=== PATIENT | female | born 1940 | race Hispanic/Latino ===

== ENCOUNTER 2017-05-31 08:07 | Day surgery (SDC) | payer MEDICARE, OTHER ==
[2017-05-25 14:33] LABS: Basophils % (Auto) 0.7 % (0.0-1.8); Eosinophils % (Auto) 0.7 % (0.0-4.3); Hematocrit 37.2 % (30.3-42.9); Hemoglobin 12.3 gm/dl (10.1-14.3); Mean Corpuscular HGB Conc 33 % (30-34); Mean Corpuscular Hemoglobin 28 pg (28-32); Mean Corpuscular Volume 86 fl (79-97); Platelet Count 265 K/mm3 (140-440); Red Blood Count 4.32 M/mm3 (3.65-5.03); White Blood Count 7.9 K/mm3 (4.5-11.0)
[2017-05-25 14:44] LABS: INR 0.87 (0.87-1.13); Partial Thromboplastin Time 30.3 Sec. (24.2-36.6)
[2017-05-25 15:03] LABS: Alanine Aminotransferase 17 units/L (7-56); Albumin 4.7 g/dL (3.9-5); Albumin/Globulin Ratio 1.3 %; Alkaline Phosphatase 91 units/L (35-129); Anion Gap 18 mmol/L; BUN/Creatinine Ratio 25; Blood Urea Nitrogen 20 mg/dL (7-17); Calcium 9.6 mg/dL (8.4-10.2); Carbon Dioxide 26 mmol/L (22-30); Chloride 98.1 mmol/L (98-107); Glucose 96 mg/dL (65-100); Potassium 5.3 mmol/L (3.6-5.0); Sodium 137 mmol/L (137-145); Total Protein 8.2 g/dL (6.3-8.2)
[~2017-05-31 08:07] MED LIST: ADRENALIN ONE; MARCAINE 0.25% INFILTRATI ONE
--- NOTE | 2017-05-31 09:37 | Anesthesia Consultation ---
Anesthesia Consult and Med Hx Date of service: 05/31/17 - Airway Anesthetic Teeth Evaluation: Dentures ROM Head & Neck: Adequate Mental/Hyoid Distance: Adequate Mallampati Class: Class II Intubation Access Assessment: Probably Good - Pulmonary Exam CTA: Yes - Cardiac Exam Cardiac Exam: RRR - Pre-Operative Health Status ASA Pre-Surgery Classification: ASA3 Proposed Anesthetic Plan: General Nerve Block: IS - Pulmonary Hx Smoking: Yes (STOPPED X 40 YRS) SOB: Yes (SOB WITH ACTIVITY) Hx Sleep Apnea: No (ANAMIKA PRE SCREEN LOW RISK) - Cardiovascular System Hx Hypertension: Yes (X 15 YRS) Hx Coronary Artery Disease: Yes Hx Heart Attack/AMI: Yes - Other Systems Hx Cancer: No
--- NOTE | 2017-05-31 09:37 | Anesthesia Day of Surgery ---
Anesthesia Day of Surgery - Day of Surgery Patient Examined: Yes Patient H&P Reviewed: Yes Patient is NPO: Yes Beta Blockers: Yes
[2017-05-31] MEDS ORDERED: LACTATED RINGERS 1,000 ML IV SCH (10:00)
[2017-05-31] MEDS ORDERED: VERSED IV NR (10:00)
[2017-05-31] MEDS ORDERED: ANCEF/STERILE WATER 2 GM/20 ML IV NR (10:00)
[2017-05-31] MEDS ORDERED: MARCAINE 0.25% INFILTRATI ONE ×2 (11:07→14:11)
[2017-05-31] MEDS ORDERED: ZOFRAN ONE ×2 (12:24→15:12)
[2017-05-31] MEDS ORDERED: DIPRIVAN 10 MG/ML IV ONE (12:24)
[2017-05-31] MEDS ORDERED: ZEMURON IV ONE (12:24)
[2017-05-31] MEDS ORDERED: SUBLIMAZE ONE (12:24)
[2017-05-31] MEDS ORDERED: XYLOCAINE MPF 2% ONE (12:24)
[2017-05-31] MEDS ORDERED: DECADRON ONE (12:24)
[2017-05-31] MEDS ORDERED: NEOSTIGMINE ONE (12:25)
[2017-05-31] MEDS ORDERED: ROBINUL ONE ×2 (12:25)
[2017-05-31] MEDS ORDERED: AMIDATE IV ONE (12:26)
[2017-05-31] MEDS ORDERED: NEO SYNEPHRINE/NS Syringe(OR USE) IV ONE (12:30)
[2017-05-31] MEDS ORDERED: ADRENALIN IV ONE (13:21)
[2017-05-31] MEDS ORDERED: ePHEDrine SULFATE ONE (13:33)
--- NOTE | 2017-05-31 14:24 | Short Stay Summary ---
Short Stay Documentation Date of service: 05/31/17 - Allergies and Medications Current Medications: Allergies amlodipine Allergy (Verified 05/22/17 11:19) Unknown chocolate flavor Allergy (Verified 05/22/17 11:21) PAPPITATIONS codeine Allergy (Verified 05/22/17 11:23) HALLUCINATIONS diphenhydramine [From Benadryl] Allergy (Verified 05/22/17 11:20) Unknown Iodinated Contrast- Oral and IV Dye Allergy (Verified 05/22/17 11:23) Unknown Penicillins Allergy (Verified 05/22/17 11:21) Rash shellfish derived Allergy (Verified 05/22/17 11:23) Unknown Sulfa (Sulfonamide Antibiotics) Allergy (Verified 05/22/17 11:23) Rash valsartan Allergy (Verified 05/22/17 11:23) Unknown atorvastatin Adverse Reaction (Verified 05/22/17 11:19) MUSCLE WEAKNESS KELP Allergy (Uncoded 05/22/17 11:23) Unknown Home Medications Medication Instructions Recorded Confirmed Last Taken Type ALPRAZolam [Xanax TAB] 0.25 mg PO DAILY 05/22/17 05/22/17 Unknown History Aspirin [Children's Aspirin] 81 mg PO DAILY 05/22/17 05/31/17 05/17/17 History Esomeprazole Magnesium [Nexium] 40 mg PO DAILY 05/22/17 05/22/17 Unknown History Latanoprost 0.005% [Xalatan 0.005%] 1 drop OP QPM 05/22/17 05/22/17 Unknown History Metoprolol [Lopressor] 25 mg PO BID 05/22/17 05/31/17 05/31/17 History Minoxidil [Loniten] 10 mg PO QDAY 05/22/17 05/22/17 Unknown History Nitroglycerin [Nitrostat] 0.4 mg SL Q5M PRN 05/22/17 05/22/17 Unknown History Pravastatin [Pravachol] 40 mg PO QHS 05/22/17 05/31/17 05/30/17 History Sertraline [Zoloft] 100 mg PO QDAY 05/22/17 05/31/17 05/30/17 History Spironolactone [Aldactone] 25 mg PO QDAY 05/22/17 05/31/17 05/30/17 History Timolol [Betimol] 1 ml OP DAILY 05/22/17 05/22/17 Unknown History traMADol [Ultram] 50 mg PO Q6HR PRN 05/22/17 05/31/17 05/26/17 History Losartan/Hydrochlorothiazide 1 each PO DAILY 05/26/17 05/31/17 05/30/17 History [Losartan-Hctz 100-25 mg Tab] Active Medications Lactated Ringer's (Lactated Ringers) 1,000 mls @ 75 mls/hr IV DIRECT GARO Last Admin: 05/31/17 09:58 Dose: 75 mls/hr Midazolam HCl (Versed) 1 mg IV PREOP NR Stop: 05/31/17 23:59 Last Admin: 05/31/17 11:06 Dose: 1 mg - Brief post op/procedure progress note Date of procedure: 05/31/17 Post-op diagnosis: same Anesthesia: GETA Surgeon: NATHALY SHUKLA
--- NOTE | 2017-05-31 14:59 | Post Anesthesia Evaluation ---
- Post Anesthesia Evaluation Patient Participated: Yes Airway Patent: Yes Stable Respiratory Function: Yes Nausea/Vomiting: No Temp > 96.8F: Yes Pain Manageable: Yes Adequeate Hydration: Yes Anesthesia Complications: No Patient on Ventilator: No
[2017-05-31] MEDS ORDERED: ZOFRAN IV ONE (15:30)
[2017-05-31 17:09] VITALS: BP 148/68
--- NOTE | 2017-05-31 22:06 | Operative Report ---
PREOPERATIVE DIAGNOSIS: Right shoulder with massive rotator cuff tear. POSTOPERATIVE DIAGNOSIS: Right shoulder with massive rotator cuff tear. PROCEDURE PERFORMED: 1. Right shoulder arthroscopy with arthroscopic rotator cuff repair -- complex massive tear. 2. Arthroscopic subacromial bursectomy, decompression. SURGEON: Andrade Gomez M.D. AUXILIARY OPERATOR: Sebastian De Souza M.D. ESTIMATED BLOOD LOSS: Minimal. COMPLICATIONS: None. DESCRIPTION OF PROCEDURE: The patient underwent successful induction of anesthesia. This included scalene block. He was carefully positioned in the beach chair position and prepped and draped in the usual fashion. Arthroscopy was carried out in the standard posterior portal. Entry made through the triangular space under direct vision. Systematic exam of the joint was carried out, demonstrated findings as noted. Articular surface was well preserved. The labrum was relatively well attached. Subscapularis was intact, biceps was intact. She was noted to have a tear of the rotator cuff supraspinatus, complete, extending in the infraspinous, anterior portion. At this point in time, the arthroscope after meticulous exam of the entire articular surface was placed in the subacromial space through the posterior portal. She was noted to have a type 2-3 acromion. Through a standard lateral portal, decompression was ____ with the cutting block technique. The outer surface of the cuff was thoroughly assessed and the bursa resected. She had a complex tear. This included delamination and horizontal cleavage tear. Meticulous debridement was carried out. The ____ tuberosity was prepared. Given the quality of the bone and the small size of the humeral head, two Arthrex 4.75 mm SwiveLock anchors were placed. The limbs of FiberWire suture were then passed and a horizontal mattress repair achieved with excellent fixation. This supplemented lateral ____ with a single 5.5 mm SwiveLock anchor with sutures passed. An excellent watertight repair was achieved. Intraoperative photographs were obtained for this. This was stable throughout range of motion. The arthroscopic instruments were removed, ports were closed with nylon sutures. Steri-Strips applied. She was taken to the recovery room in satisfactory condition having tolerated the procedure well. Placed on abduction pillows. JOB# [id number] RDP/NTS
== END 2017-05-31 16:45 | disposition home or self-care (01) ==
LOC: OR 08:07
PROVIDERS: ATTEND Orthopaedic Surgery
DX: S46.011A Strain of muscle(s) and tendon(s) of the rotator cuff of right shoulder, initial encounter (principal); Y99.8 Other external cause status; Y92.89 Other specified places as the place of occurrence of the external cause; Y93.89 Activity, other specified; X58.XXXA Exposure to other specified factors, initial encounter; E78.00 Pure hypercholesterolemia, unspecified; F32.9 Major depressive disorder, single episode, unspecified; F41.9 Anxiety disorder, unspecified; I10 Essential (primary) hypertension; I25.2 Old myocardial infarction; Z88.5 Allergy status to narcotic agent; Z88.0 Allergy status to penicillin; Z91.013 Allergy to seafood; Z88.2 Allergy status to sulfonamides; Z91.018 Allergy to other foods; Z91.041 Radiographic dye allergy status; Z91.09 Other allergy status, other than to drugs and biological substances; Z79.899 Other long term (current) drug therapy; Z79.2 Long term (current) use of antibiotics; Z98.890 Other specified postprocedural states; Z87.891 Personal history of nicotine dependence; Z95.1 Presence of aortocoronary bypass graft; Z90.710 Acquired absence of both cervix and uterus; Z79.01 Long term (current) use of anticoagulants
CPT/HCPCS: 29826; 29827; 36415; 80053; 82962; 85025; 85610; 85730; 93005; 93010; C1713; J0171; J0690; J2250; J2370; J2405; J2710; J3010; J7120; J1100; J2704

== ENCOUNTER 2017-11-27 13:03 | Outpatient (CLI) | payer MEDICARE, OTHER ==
--- NOTE | 2017-11-28 07:55 | XRay Report ---
FINAL REPORT EXAM: XR SHOULDER 2+V RT HISTORY: RIGHT ANTERIOR SHOULDER PAIN TECHNIQUE: 4 views of the right shoulder PRIORS: None. FINDINGS: There is no evidence of acute fracture. There is no evidence of joint dislocation. There are moderate degenerative changes at the AC joint. IMPRESSION: There is no acute abnormality identified. Degenerative changes at AC joint.
== END 2017-11-27 13:04 | disposition home or self-care (01) ==
LOC: XRAY 13:03
PROVIDERS: ATTEND Internal Medicine
DX: M19.011 Primary osteoarthritis, right shoulder (principal)

== ENCOUNTER 2018-05-21 14:26 | Outpatient (CLI) | payer MEDICARE, OTHER ==
--- NOTE | 2018-05-21 15:32 | XRay Report ---
CHEST TWO VIEWS: 05/21/18 14:26:00 CLINICAL: Chest pain and weakness. COMPARISON: X-ray thoracic spine 09/04/14 FINDINGS: Normal heart and pulmonary vasculature. The lungs are normally expanded and clear.Median sternotomy wires and mediastinal surgical clips. Degenerative changes in the spine and mild mid wedge compression fracture of the T9 vertebral body which is new compared to the previous T-spine exam. No fracture lines are identified. IMPRESSION: No acute cardiopulmonary process.Mild T9 mid wedge compression fracture of uncertain age. However, it is new since 09/04/14.
== END 2018-05-21 14:27 | disposition home or self-care (01) ==
LOC: SPVIMAG 14:26
PROVIDERS: ATTEND Internal Medicine
DX: R09.81 Nasal congestion (principal); R07.9 Chest pain, unspecified; R53.1 Weakness; I10 Essential (primary) hypertension; E78.00 Pure hypercholesterolemia, unspecified; Z90.710 Acquired absence of both cervix and uterus; Z87.891 Personal history of nicotine dependence; I25.10 Atherosclerotic heart disease of native coronary artery without angina pectoris
CPT/HCPCS: 71046

== ENCOUNTER 2019-02-01 11:05 | Outpatient (CLI) | payer MEDICARE, OTHER ==
--- NOTE | 2019-02-01 14:01 | Mammography Report ---
DIGITAL SCREENING MAMMOGRAM WITH CAD INDICATION: Routine screening mammography. TECHNIQUE: Digital bilateral 2D mammography was obtained in the craniocaudal and mediolateral obliq ue projections. This examination was interpreted with the benefit of Computer-Aided Detection analysi s. COMPARISON: None. FINDINGS: Breast Density: The breasts are heterogeneously dense, which may obscure small masses. Right asymmetries on both views requires additional imaging. No architectural distortion or suspiciou s calcifications. The left breast is negative. IMPRESSION: Right asymmetries requiring additional imaging. Recommend recall for right spot compressi on views and right breast ultrasound if needed. BI-RADS Category 0: Incomplete. Needs additional imaging evaluation and/or prior mammograms for trang rison. A "normal" or negative report should not discourage follow up or biopsy of a clinically significant f inding. A written summary of these findings will be mailed to the patient. The patient will be entered into a mammography reporting system which will generate a reminder letter for the patient's next appointmen t at the appropriate interval. The [employer] recommends yearly mammograms starting at age 40 and continuing as l rene as a woman is in good health. Breast MRI is recommended for women with an approximate 20-25% or greater lifetime risk of breast cancer, including women with a strong family history of breast or ova elma cancer or who have been treated for Hodgkin's disease. Signer Name: Gerard Renner MD Signed: 02/01/2019 1:57 PM Workstation Name: [id number]
== END 2019-02-01 11:06 | disposition home or self-care (01) ==
LOC: SPVWC 11:05
PROVIDERS: ATTEND Internal Medicine
DX: Z12.31 Encounter for screening mammogram for malignant neoplasm of breast (principal); I10 Essential (primary) hypertension; E78.00 Pure hypercholesterolemia, unspecified; Z90.710 Acquired absence of both cervix and uterus
CPT/HCPCS: 77067

== ENCOUNTER 2019-02-27 12:50 | Outpatient (CLI) | payer MEDICARE, OTHER ==
--- NOTE | 2019-02-27 14:09 | Mammography Report ---
RIGHT BREAST DIAGNOSTIC MAMMOGRAM WITHOUT CAD HISTORY: Recalled for asymmetries. COMPARISON: 02/01/2019 FINDINGS: Right Breast Mammogram: Additional right mammographic views demonstrate a scattered fibroglandular a ppearance of the breast tissue. The previously identified asymmetries demonstrates satisfactory effa cement and disappear on rolled CC views and lateral views. IMPRESSION No mammographic evidence of malignancy. If the clinical examination remains stable, recommend bilateral screening mammogram in approximately one year. BIRADS 1: Negative. According to the [employer], yearly mammograms are recommended starting at age 40 and continuing as long as a woman is in good health. Clinical Breast Exams should be part of a period ic health exam-about every 3 years for women in their 20s and 30s and every year for women 40 and ove r. Breast self exam is an option for women starting in their 20s. Any breast change noted on a breast self exam should be reported promptly to the patient's healthcare provider. Breast MRI is recommende d for women with an approximately 20-25% or greater lifetime risk of breast cancer, including women w ith a strong family history of breast or ovarian cancer and women who have been treated for Hodgkin's disease. A negative Mammography report should not discourage follow up or biopsy of a clinically significant f inding and/or abnormality. Dense breast tissue may obscure small neoplasms. Signer Name: Gerard Renner MD Signed: 02/27/2019 2:04 PM Workstation Name: [id number]
== END 2019-02-27 12:51 | disposition home or self-care (01) ==
LOC: SPVWC 12:50
PROVIDERS: ATTEND Internal Medicine
DX: R92.8 Other abnormal and inconclusive findings on diagnostic imaging of breast (principal); I10 Essential (primary) hypertension; E78.00 Pure hypercholesterolemia, unspecified; Z90.710 Acquired absence of both cervix and uterus